=== PATIENT | female | born 1955 | race Caucasian/White ===

== ENCOUNTER 2019-01-15 10:00 | Emergency (ER) | payer OTHER, SELFPAY ==
[2019-01-15] VITALS (12 sets, daily range): BP systolic 118–197; BP diastolic 70–110; PULSE 61–72; RESP 10–17; TEMP 36.8–37.1; O2SAT 95–99; BMI 23.8
--- NOTE | 2019-01-15 10:03 | ED.CHESTPAIN ---
HPI - Chest Pain General Chief Complaint: Chest Pain Stated Complaint: Chest pain Time Seen by Provider: 01/15/19 10:06 Source: patient and EMS Mode of arrival: EMS Limitations: no limitations History of Present Illness HPI narrative: Patient is a lisa 63-year-old female presenting with chest pain. She is currently camping she was sitting on a couch with her iPad when it started actually in her right upper quadrant radiated up into her chest and now she says her left arm is aching but overall she is feeling better. Also for about 10 minutes. Nothing made it better or worse. No prior history of coronary artery disease. She has never had anything like this before. She denies shortness of breath diaphoresis nausea. She says that she is under lot of stress her recently passed next week is their anniversary. MD complaint: chest pain Duration: now resolved Onset: during rest Pain location: substernal and other (Right upper quadrant) Relieving factors: nothing Exacerbating factors: nothing Related Data Home Medications Medication Instructions Recorded Confirmed Vitamin B-12 1 tab PO DAILY 01/15/19 01/15/19 Vitamin D3 1 tab PO DAILY 01/15/19 01/15/19 aspirin 81 mg PO DAILY 01/15/19 01/15/19 calcium carb-mag oxide-vit D3 1 tab PO DAILY 01/15/19 01/15/19 duloxetine 30 mg PO QAM 01/15/19 01/15/19 duloxetine 60 mg PO QPM 01/15/19 01/15/19 gabapentin 1,200 mg PO QPM 01/15/19 01/15/19 gabapentin 600 mg PO QAM 01/15/19 01/15/19 lorazepam 0.5 mg PO BID PRN 01/15/19 01/15/19 omeprazole 20 mg PO QAM 01/15/19 01/15/19 tramadol 50 mg PO BID PRN 01/15/19 01/15/19 trazodone 100 mg PO BEDTIME 01/15/19 01/15/19 Allergies Allergy/AdvReac Type Severity Reaction Status Date / Time Penicillins Allergy Verified 01/15/19 10:08 Review of Systems Review of Systems GENERAL: Denies chills, fatigue, malaise, fever, sweats, travel HEENT: Denies sinus pain, ear pain, sore throat, difficulty swallowing, neck pain RESPIRATORY: Denies dyspnea, cough, wheezing, hemoptysis, sputum. CARDIOVASCULAR: See HPI GASTROINTESTINAL: Denies nausea, vomiting, abdominal pain, diarrhea, constipation, melena. : Denies dysuria, frequency, incontinence, hematuria, urinary retention, flank pain. MUSCULOSKELETAL: Denies weakness, joint pain, or bony pain SKIN: No rash, no erythema, no pruritus NEUROLOGIC: Denies weakness, dizziness, headache, numbness, change in speech, confusion PSYCHIATRIC: No concerning psychosocial issues. 12 point review of systems is negative except for those stated above and HPI [facility] Medical History Patient denies significant medical history (Acute) Social History (Updated 01/15/19 @ 10:09 by Natalie Oropeza DO) marital status: lives independently: Yes Smoking Status: Never smoker alcohol intake: never substance use type: does not use Social History marital status: lives independently: Yes Smoking Status: Never smoker alcohol intake: never substance use type: does not use Exam Initial Vital Signs Initial Vital Signs: Vital Signs Temperature 98.7 F 01/15/19 10:00 Pulse Rate 65 01/15/19 10:00 Respiratory Rate 12 01/15/19 10:00 Blood Pressure 197/103 H 01/15/19 10:00 Pulse Oximetry 99 01/15/19 10:00 GENERAL: Alert pleasant elderly female no acute distress HEENT: Head atraumatic,EOMI, pupils reactive, face symmetric, [moist] mucous membranes CARDIOVASCULAR: Regular rate and rhythm without murmurs, rubs or gallops. RESPIRATORY: Breath sounds equal bilaterally, no wheezes rales or rhonchi. ABDOMEN: Soft, no right upper quadrant tenderness no guarding no rebound no epigastric pain EXTREMITIES: Normal range of motion, no clubbing or edema. Neurovascularly intact NEUROLOGICAL: Alert and oriented x4.Normal gait and speech. Cranial nerves II through XII grossly intact. SKIN: Warm, dry, no laceration, no petechiae, no rashes or lesions. Scores HEART Score Heart Score history: Slightly Suspicious Heart Score EKG: Normal Heart Score Age: 45-64 years old Heart Score risk factors: No known risk factors Heart Score troponin: < or = to normal limit Heart Score Total: 1 Course Orders Ordered: ED Orders 01/15/19 13:09 Troponin I Stat Discontinued Medications Sodium Chloride (Normal Saline 0.9%) 1,000 mls @ 150 mls/hr IV CONT MARYAN Last Admin: 01/15/19 10:18 Dose: 150 mls/hr Nitroglycerin (Nitrostat) 0.4 mg SL [id number] PRN PRN Reason: Chest Pain Last Admin: 01/15/19 10:51 Dose: 0.4 mg Admin: 01/15/19 10:45 Dose: 0.4 mg Vital Signs - 8 hr 01/15/19 11:16 01/15/19 11:47 01/15/19 12:00 Temperature Pulse Rate 65 63 64 Respiratory Rate 12 12 12 Blood Pressure [Right Arm] 128/77 118/70 118/71 Pulse Oximetry 95 95 95 01/15/19 12:30 01/15/19 13:00 01/15/19 13:44 Temperature 98.3 F Pulse Rate 66 61 65 Respiratory Rate 17 11 L 16 Blood Pressure [Right Arm] 125/78 130/73 132/84 Pulse Oximetry 97 96 MDM - Chest Pain Lab Data Attestation: I reviewed the patient's lab results. Result diagrams: 01/15/19 10:00 01/15/19 10:00 Lab Results 01/15/19 01/15/19 01/15/19 Range/Units 10:00 10:00 10:00 WBC 4.3 L (4.5-11.0) X10^3/uL RBC 4.60 (4.0-5.2) X10^6/uL Hgb 14.1 (12.0-16.0) g/dL Hct 42.8 (36-46) % MCV 93.0 (80-100) fL MCH 30.7 (26-34) PG MCHC 33.0 (30-36) % RDW 13.2 (11.6-14.8) % Plt Count 224 (150-400) X10^3/uL Neut % (Auto) 49.3 L (50-75) % Lymph % (Auto) 35.5 (25-40) % [place] % (Auto) 11.1 (3-14) % Eos % (Auto) 3.2 (2-4) % Baso % (Auto) 0.9 (0-2) % Neut # (Auto) 2100 (3617-7528) /uL Lymph # (Auto) 1500 (3111-1213) /uL [place] # (Auto) 500 (0-900) /uL Eos # (Auto) 100 (0-450) /uL Baso # (Auto) 0 (0-100) /uL PT 10.7 (10.1-12.7) SECONDS INR 0.9 (0.9-1.3) APTT 31 (26.4-36.2) SECONDS Sodium 141 (137-145) mmol/L Potassium 4.0 (3.4-5.1) mmol/L Chloride 101 (98-107) mmol/L Carbon Dioxide 31 (22-32) mmol/L BUN 18 H (7-17) mg/dL Creatinine 0.70 (0.52-1.04) mg/dL Estimated GFR > 60.0 (>60) mL/min BUN/Creatinine Ratio 25.7 H (6-22) Glucose 100 (80-110) mg/dL Calcium 9.7 (8.4-10.2) mg/dL Total Bilirubin 0.6 (0.2-1.3) mg/dL AST 45 H (14-36) IU/L ALT 24 (9-52) IU/L Alkaline Phosphatase 91 (38-126) U/L Total Creatine Kinase 111 (30-135) U/L CK-MB (CK-2) 2.00 (<2.37) ng/mL CK-MB (CK-2) Rel Index 1.8 (1.5-5.0) % Troponin I < 0.012 (0.01-0.034) ng/mL Total Protein 8.1 (6.3-8.2) g/dL Albumin 4.7 (3.5-5.0) g/dL Globulin 3.4 (1.7-4.1) g/dL Albumin/Globulin Ratio 1.4 (1.0-2.8) Lipase 95 (23-300) U/L 01/15/19 Range/Units 13:09 WBC (4.5-11.0) X10^3/uL RBC (4.0-5.2) X10^6/uL Hgb (12.0-16.0) g/dL Hct (36-46) % MCV (80-100) fL MCH (26-34) PG MCHC (30-36) % RDW (11.6-14.8) % Plt Count (150-400) X10^3/uL Neut % (Auto) (50-75) % Lymph % (Auto) (25-40) % [place] % (Auto) (3-14) % Eos % (Auto) (2-4) % Baso % (Auto) (0-2) % Neut # (Auto) (2352-1659) /uL Lymph # (Auto) (6497-9596) /uL [place] # (Auto) (0-900) /uL Eos # (Auto) (0-450) /uL Baso # (Auto) (0-100) /uL PT (10.1-12.7) SECONDS INR (0.9-1.3) APTT (26.4-36.2) SECONDS Sodium (137-145) mmol/L Potassium (3.4-5.1) mmol/L Chloride (98-107) mmol/L Carbon Dioxide (22-32) mmol/L BUN (7-17) mg/dL Creatinine (0.52-1.04) mg/dL Estimated GFR (>60) mL/min BUN/Creatinine Ratio (6-22) Glucose (80-110) mg/dL Calcium (8.4-10.2) mg/dL Total Bilirubin (0.2-1.3) mg/dL AST (14-36) IU/L ALT (9-52) IU/L Alkaline Phosphatase (38-126) U/L Total Creatine Kinase (30-135) U/L CK-MB (CK-2) (<2.37) ng/mL CK-MB (CK-2) Rel Index (1.5-5.0) % Troponin I < 0.012 (0.01-0.034) ng/mL Total Protein (6.3-8.2) g/dL Albumin (3.5-5.0) g/dL Globulin (1.7-4.1) g/dL Albumin/Globulin Ratio (1.0-2.8) Lipase (23-300) U/L Urine Dip Bedside Urine Glucose Negative Bedside Urine Bilirubin - Negative Bedside Urine Ketone - Negative Urine Specific [place] 1.015 Bedside Urine Occult Blood - Negative Bedside Urine pH 8 Bedside Urine Protein - Negative Bedside Urine Urobilinogen - Negative Bedside Urine Nitrite - Negative Bedside Urine Leukocytes - Negative Esterase Imaging Data Chest x-ray: Radiologist's impression: PROCEDURE: XR CHEST 1V INDICATIONS: chest pain TECHNIQUE: One view of the chest was acquired. COMPARISON: None. FINDINGS: Surgical changes and devices: None. Lungs and pleura: Lungs are clear. No pleural effusions or pneumothorax. Mediastinum: Mediastinal contours appear normal. Heart size is normal. Bones and chest wall: No suspicious bony lesions. Overlying soft tissues appear unremarkable. IMPRESSION: No acute cardiopulmonary findings. Dictated by: Patti Phillips M.D. on 01/15/2019 at 10:48 ECG Data Attestation: I personally reviewed and interpreted this ECG as follows: Prior ECG tracings: not available for review Interpretation: Normal sinus rhythm rate 63 BP are interval [address] changes no T-wave inversion no priors to compare EKG 2. Rate [address] changes no T-wave inversion and no sign of ischemia AL interval 157 no changes from prior MDM Narrative Medical decision making narrative: The patient was given nitroglycerin for her left arm achiness. It did seem to help very much. In fact her daughter state that she has had left arm achiness off and on for some time. She does have a low risk heart score. At this time I discussed with her outpatient follow-up including further outpatient testing. She understands this and agrees. I discussed all findings with the patient and children, Education has been performed regarding treatment plan, diagnosis, warning signs and symptoms and all concerns have been addressed. Verbally agree with and understood all of the above. Discharge Plan Departure Patient Disposition: Home Clinical Impression: Atypical chest pain Discharge Date/Time: 01/15/19 14:04 Interventions: ED Discharge Assessment Last Done: 01/15/19 14:04 Instructions: DI for Atypical Chest Pain Activity Restrictions/Additional Instructions: *You have been diagnosed with atypical chest pain *What to do: It is still recommended that he have outpatient stress test including a treadmill test and echocardiogram. You are considered low risk. However if you should have any return or change of symptoms you need to return to nearest emergency department soon as possible. *Continue to take medications as directed Aspirin 81 mg once daily *Follow up with your primary care provider in 2-3 days *Return to ER if you should have increasing or new or worsening chest or any new, worsening or concerning symptoms Prescriptions: No Action gabapentin 600 mg Tablet 600 mg PO QAM RF: 0 gabapentin 600 mg Tablet 1,200 mg PO QPM RF: 0 trazodone 50 mg Tablet 100 mg PO BEDTIME RF: 0 aspirin 81 mg Tablet,Delayed Release (Dr/Ec) 81 mg PO DAILY RF: 0 tramadol 50 mg Tablet 50 mg PO BID PRN (Reason: pain) RF: 0 lorazepam 0.5 mg Tablet 0.5 mg PO BID PRN (Reason: Anxiety) RF: 0 omeprazole 20 mg Capsule,Delayed Release(Dr/Ec) 20 mg PO QAM RF: 0 duloxetine 30 mg Capsule,Delayed Release(Dr/Ec) 30 mg PO QAM RF: 0 duloxetine 60 mg Capsule,Delayed Release(Dr/Ec) 60 mg PO QPM RF: 0 Vitamin B-12 1 tab PO DAILY RF: 0 Vitamin D3 1 tab PO DAILY RF: 0 calcium carb-mag oxide-vit D3 1 tab PO DAILY RF: 0
--- NOTE | 2019-01-15 10:10 | ED_ITS ---
HPI - Chest Pain General Chief Complaint: Chest Pain Stated Complaint: Chest pain Time Seen by Provider: 01/15/19 10:06 Source: patient and EMS Mode of arrival: EMS Limitations: no limitations History of Present Illness HPI narrative: Patient is a lisa 63-year-old female presenting with chest pain. She is currently camping she was sitting on a couch with her iPad when it started actually in her right upper quadrant radiated up into her chest and now she says her left arm is aching but overall she is feeling better. Also for about 10 minutes. Nothing made it better or worse. No prior history of coronary artery disease. She has never had anything like this before. She denies shortness of breath diaphoresis nausea. She says that she is under lot of stress her recently passed next week is their anniversary. MD complaint: chest pain Duration: now resolved Onset: during rest Pain location: substernal and other (Right upper quadrant) Relieving factors: nothing Exacerbating factors: nothing Related Data Home Medications Medication Instructions Recorded Confirmed Vitamin B-12 1 tab PO DAILY 01/15/19 01/15/19 Vitamin D3 1 tab PO DAILY 01/15/19 01/15/19 aspirin 81 mg PO DAILY 01/15/19 01/15/19 calcium carb-mag oxide-vit D3 1 tab PO DAILY 01/15/19 01/15/19 duloxetine 30 mg PO QAM 01/15/19 01/15/19 duloxetine 60 mg PO QPM 01/15/19 01/15/19 gabapentin 1,200 mg PO QPM 01/15/19 01/15/19 gabapentin 600 mg PO QAM 01/15/19 01/15/19 lorazepam 0.5 mg PO BID PRN 01/15/19 01/15/19 omeprazole 20 mg PO QAM 01/15/19 01/15/19 tramadol 50 mg PO BID PRN 01/15/19 01/15/19 trazodone 100 mg PO BEDTIME 01/15/19 01/15/19 Allergies Allergy/AdvReac Type Severity Reaction Status Date / Time Penicillins Allergy Verified 01/15/19 10:08 Review of Systems Review of Systems GENERAL: Denies chills, fatigue, malaise, fever, sweats, travel HEENT: Denies sinus pain, ear pain, sore throat, difficulty swallowing, neck pain RESPIRATORY: Denies dyspnea, cough, wheezing, hemoptysis, sputum. CARDIOVASCULAR: See HPI GASTROINTESTINAL: Denies nausea, vomiting, abdominal pain, diarrhea, constipation, melena. : Denies dysuria, frequency, incontinence, hematuria, urinary retention, flank pain. MUSCULOSKELETAL: Denies weakness, joint pain, or bony pain SKIN: No rash, no erythema, no pruritus NEUROLOGIC: Denies weakness, dizziness, headache, numbness, change in speech, confusion PSYCHIATRIC: No concerning psychosocial issues. 12 point review of systems is negative except for those stated above and HPI [facility] Medical History Patient denies significant medical history (Acute) Social History (Updated 01/15/19 @ 10:09 by Natalie Oropeza DO) marital status: lives independently: Yes Smoking Status: Never smoker alcohol intake: never substance use type: does not use Social History marital status: lives independently: Yes Smoking Status: Never smoker alcohol intake: never substance use type: does not use Exam Initial Vital Signs Initial Vital Signs: Vital Signs Temperature 98.7 F 01/15/19 10:00 Pulse Rate 65 01/15/19 10:00 Respiratory Rate 12 01/15/19 10:00 Blood Pressure 197/103 H 01/15/19 10:00 Pulse Oximetry 99 01/15/19 10:00 GENERAL: Alert pleasant elderly female no acute distress HEENT: Head atraumatic,EOMI, pupils reactive, face symmetric, [moist] mucous membranes CARDIOVASCULAR: Regular rate and rhythm without murmurs, rubs or gallops. RESPIRATORY: Breath sounds equal bilaterally, no wheezes rales or rhonchi. ABDOMEN: Soft, no right upper quadrant tenderness no guarding no rebound no epigastric pain EXTREMITIES: Normal range of motion, no clubbing or edema. Neurovascularly intact NEUROLOGICAL: Alert and oriented x4.Normal gait and speech. Cranial nerves II th rough XII grossly intact. SKIN: Warm, dry, no laceration, no petechiae, no rashes or lesions. Scores HEART Score Heart Score history: Slightly Suspicious Heart Score EKG: Normal Heart Score Age: 45-64 years old Heart Score risk factors: No known risk factors Heart Score troponin: < or = to normal limit Heart Score Total: 1 Course Orders Ordered: ED Orders 01/15/19 13:09 Troponin I Stat Discontinued Medications Sodium Chloride (Normal Saline 0.9%) 1,000 mls @ 150 mls/hr IV CONT MARYAN Last Admin: 01/15/19 10:18 Dose: 150 mls/hr Nitroglycerin (Nitrostat) 0.4 mg SL [id number] PRN PRN Reason: Chest Pain Last Admin: 01/15/19 10:51 Dose: 0.4 mg Admin: 01/15/19 10:45 Dose: 0.4 mg Vital Signs - 8 hr 01/15/19 11:16 01/15/19 11:47 01/15/19 12:00 Temperature Pulse Rate 65 63 64 Respiratory Rate 12 12 12 Blood Pressure [Right Arm] 128/77 118/70 118/71 Pulse Oximetry 95 95 95 01/15/19 12:30 01/15/19 13:00 01/15/19 13:44 Temperature 98.3 F Pulse Rate 66 61 65 Respiratory Rate 17 11 L 16 Blood Pressure [Right Arm] 125/78 130/73 132/84 Pulse Oximetry 97 96 MDM - Chest Pain Lab Data Attestation: I reviewed the patient's lab results. Result diagrams: 01/15/19 10:00 01/15/19 10:00 Lab Results 01/15/19 01/15/19 01/15/19 Range/Units 10:00 10:00 10:00 WBC 4.3 L (4.5-11.0) X10^3/uL RBC 4.60 (4.0-5.2) X10^6/uL Hgb 14.1 (12.0-16.0) g/dL Hct 42.8 (36-46) % MCV 93.0 (80-100) fL MCH 30.7 (26-34) PG MCHC 33.0 (30-36) % RDW 13.2 (11.6-14.8) % Plt Count 224 (150-400) X10^3/uL Neut % (Auto) 49.3 L (50-75) % Lymph % (Auto) 35.5 (25-40) % [place] % (Auto) 11.1 (3-14) % Eos % (Auto) 3.2 (2-4) % Baso % (Auto) 0.9 (0-2) % Neut # (Auto) 2100 (7794-9508) /uL Lymph # (Auto) 1500 (9318-0099) /uL [place] # (Auto) 500 (0-900) /uL Eos # (Auto) 100 (0-450) /uL Baso # (Auto) 0 (0-100) /uL PT 10.7 (10.1-12.7) SECONDS INR 0.9 (0.9-1.3) APTT 31 (26.4-36.2) SECONDS Sodium 141 (137-145) mmol/L Potassium 4.0 (3.4-5.1) mmol/L Chloride 101 (98-107) mmol/L Carbon Dioxide 31 (22-32) mmol/L BUN 18 H (7-17) mg/dL Creatinine 0.70 (0.52-1.04) mg/dL Estimated GFR > 60.0 (>60) mL/min BUN/Creatinine Ratio 25.7 H (6-22) Glucose 100 (80-110) mg/dL Calcium 9.7 (8.4-10.2) mg/dL Total Bilirubin 0.6 (0.2-1.3) mg/dL AST 45 H (14-36) IU/L ALT 24 (9-52) IU/L Alkaline Phosphatase 91 (38-126) U/L Total Creatine Kinase 111 (30-135) U/L CK-MB (CK-2) 2.00 (<2.37) ng/mL CK-MB (CK-2) Rel Index 1.8 (1.5-5.0) % Troponin I < 0.012 (0.01-0.034) ng/mL Total Protein 8.1 (6.3-8.2) g/dL Albumin 4.7 (3.5-5.0) g/dL Globulin 3.4 (1.7-4.1) g/dL Albumin/Globulin Ratio 1.4 (1.0-2.8) Lipase 95 (23-300) U/L 01/15/19 Range/Units 13:09 WBC (4.5-11.0) X10^3/uL RBC (4.0-5.2) X10^6/uL Hgb (12.0-16.0) g/dL Hct (36-46) % MCV (80-100) fL MCH (26-34) PG MCHC (30-36) % RDW (11.6-14.8) % Plt Count (150-400) X10^3/uL Neut % (Auto) (50-75) % Lymph % (Auto) (25-40) % [place] % (Auto) (3-14) % Eos % (Auto) (2-4) % Baso % (Auto) (0-2) % Neut # (Auto) (6230-1617) /uL Lymph # (Auto) (9274-4237) /uL [place] # (Auto) (0-900) /uL Eos # (Auto) (0-450) /uL Baso # (Auto) (0-100) /uL PT (10.1-12.7) SECONDS INR (0.9-1.3) APTT (26.4-36.2) SECONDS Sodium (137-145) mmol/L Potassium (3.4-5.1) mmol/L Chloride (98-107) mmol/L Carbon Dioxide (22-32) mmol/L BUN (7-17) mg/dL Creatinine (0.52-1.04) mg/dL Estimated GFR (>60) mL/min BUN/Creatinine Ratio (6-22) Glucose (80-110) mg/dL Calcium (8.4-10.2) mg/dL Total Bilirubin (0.2-1.3) mg/dL AST (14-36) IU/L ALT (9-52) IU/L Alkaline Phosphatase (38-126) U/L Total Creatine Kinase (30-135) U/L CK-MB (CK-2) (<2.37) ng/mL CK-MB (CK-2) Rel Index (1.5-5.0) % Troponin I < 0.012 (0.01-0.034) ng/mL Total Protein (6.3-8.2) g/dL Albumin (3.5-5.0) g/dL Globulin (1.7-4.1) g/dL Albumin/Globulin Ratio (1.0-2.8) Lipase (23-300) U/L Urine Dip Bedside Urine Glucose Negative Bedside Urine Bilirubin - Negative Bedside Urine Ketone - Negative Urine Specific [place] 1.015 Bedside Urine Occult Blood - Negative Bedside Urine pH 8 Bedside Urine Protein - Negative Bedside Urine Urobilinogen - Negative Bedside Urine Nitrite - Negative Bedside Urine Leukocytes - Negative Esterase Imaging Data Chest x-ray: Radiologist's impression: PROCEDURE: XR CHEST 1V INDICATIONS: chest pain TECHNIQUE: One view of the chest was acquired. COMPARISON: None. FINDINGS: Surgical changes and devices: None. Lungs and pleura: Lungs are clear. No pleural effusions or pneumothorax. Mediastinum: Mediastinal contours appear normal. Heart size is normal. Bones and chest wall: No suspicious bony lesions. Overlying soft tissues appear unremarkable. IMPRESSION: No acute cardiopulmonary findings. Dictated by: Patti Phillips M.D. on 01/15/2019 at 10:48 ECG Data Attestation: I personally reviewed and interpreted this ECG as follows: Prior ECG tracings: not available for review Interpretation: Normal sinus rhythm rate 63 BP are interval [address] changes no T-wave inversion no priors to compare EKG 2. Rate [address] changes no T-wave inversion and no sign of ischemia [place] interval 157 no changes from prior MDM Narrative Medical decision making narrative: The patient was given nitroglycerin for her left arm achiness. It did seem to help very much. In fact her daughter state that she has had left arm achiness off and on for some time. She does have a low risk heart score. At this time I discussed with her outpatient follow-up i ncluding further outpatient testing. She understands this and agrees. I discussed all findings with the patient and children, Education has been performed regarding treatment plan, diagnosis, warning signs and symptoms and all concerns have been addressed. Verbally agree with and understood all of the above. Discharge Plan Departure Patient Disposition: Home Clinical Impression: Atypical chest pain Discharge Date/Time: 01/15/19 14:04 Interventions: ED Discharge Assessment Last Done: 01/15/19 14:04 Instructions: DI for Atypical Chest Pain Activity Restrictions/Additional Instructions: *You have been diagnosed with atypical chest pain *What to do: It is still recommended that he have outpatient stress test including a treadmill test and echocardiogram. You are considered low risk. However if you should have any return or change of symptoms you need to return to nearest emergency department soon as possible. *Continue to take medications as directed Aspirin 81 mg once daily *Follow up with your primary care provider in 2-3 days *Return to ER if you should have increasing or new or worsening chest or any new, worsening or concerning symptoms Prescriptions: No Action gabapentin 600 mg Tablet 600 mg PO QAM RF: 0 gabapentin 600 mg Tablet 1,200 mg PO QPM RF: 0 trazodone 50 mg Tablet 100 mg PO BEDTIME RF: 0 aspirin 81 mg Tablet,Delayed Release (Dr/Ec) 81 mg PO DAILY RF: 0 tramadol 50 mg Tablet 50 mg PO BID PRN (Reason: pain) RF: 0 lorazepam 0.5 mg Tablet 0.5 mg PO BID PRN (Reason: Anxiety) RF: 0 omeprazole 20 mg Capsule,Delayed Release(Dr/Ec) 20 mg PO QAM RF: 0 duloxetine 30 mg Capsule,Delayed Release(Dr/Ec) 30 mg PO QAM RF: 0 duloxetine 60 mg Capsule,Delayed Release(Dr/Ec) 60 mg PO QPM RF: 0 Vitamin B-12 1 tab PO DAILY RF: 0 Vitamin D3 1 tab PO DAILY RF: 0 calcium carb-mag oxide-vit D3 1 tab PO DAILY RF: 0
[2019-01-15 10:17] LABS: Add Manual Diff / Slide Review NO; Basophils Absolute Auto 0 /uL (0-100); Basophils Percent Auto 0.9 % (0-2); Eosinophils Absolute Auto 100 /uL (0-450); Eosinophils Percent Auto 3.2 % (2-4); Hematocrit 42.8 % (36-46); Hemoglobin 14.1 g/dL (12.0-16.0); Lymphocytes Absolute Auto 1500 /uL (1100-4500); Lymphocytes Percent Auto 35.5 % (25-40); Mean Corpuscular Hemoglobin 30.7 PG (26-34); Monocytes Absolute Auto 500 /uL (0-900); Monocytes Percent Auto 11.1 % (3-14); Neutrophils Absolute Auto 2100 /uL (1500-7000); Neutrophils Percent Auto 49.3 % (50-75); Platelet Count 224 X10^3/uL (150-400); Red Cell Distribution Width 13.2 % (11.6-14.8); White Blood Cell Count 4.3 X10^3/uL (4.5-11.0)
[2019-01-15] MEDS: SODIUM CHLORIDE 0.9% 1,000 ML 150 ML IV (10:18)
[2019-01-15 10:21] LABS: INR 0.9 (0.9-1.3); Prothrombin Time 10.7 SECONDS (10.1-12.7)
[2019-01-15 10:24] LABS: PTT Partial Thromboplastin Tim 31 SECONDS (26.4-36.2)
[2019-01-15 10:27] LABS: Alanine Aminotransferase 24 IU/L (9-52); Albumin 4.7 g/dL (3.5-5.0); Albumin Globulin Ratio 1.4 (1.0-2.8); Alkaline Phosphatase 91 U/L (38-126); Aspartate Aminotransferase 45 IU/L (14-36); BUN Creatinine Ratio 25.7 (6-22); Bilirubin Total 0.6 mg/dL (0.2-1.3); Blood Urea Nitrogen 18 mg/dL (7-17); Calcium 9.7 mg/dL (8.4-10.2); Carbon Dioxide 31 mmol/L (22-32); Chloride 101 mmol/L (98-107); Creatine Kinase 111 U/L (30-135); Estimated Glomerular Filt Rate > 60.0 mL/min (>60); Globulin 3.4 g/dL (1.7-4.1); Glucose 100 mg/dL (80-110); HEMOLYSIS 37 (0-50); Lipase 95 U/L (23-300); Sodium 141 mmol/L (137-145); Total Protein 8.1 g/dL (6.3-8.2)
[2019-01-15 10:38] LABS: Troponin I < 0.012 ng/mL (0.01-0.034)
[2019-01-15 10:42] LABS: CKMB % Relative Index 1.8 % (1.5-5.0)
[2019-01-15] MEDS: NITROGLYCERIN 0.4 MG SL TAB SL ×2 (10:45→10:51)
--- NOTE | 2019-01-15 11:25 | PC.NURSE ---
pt ambulating to bathroom, gait steady
--- NOTE | 2019-01-15 13:34 | PC.NURSE ---
pt ambulating to bathroom, gait steady
[2019-01-15 13:41] LABS: Troponin I < 0.012 ng/mL (0.01-0.034)
--- NOTE | 2019-01-27 20:55 | PC.NURSE ---
Late entry, IV fluids started at 1018 at 150ml/hr, d/c'd at 1400, total approx. infusion 575ml, no ill effect, waste amount 425ml
== END 2019-01-15 14:04 | disposition home or self-care (01) ==
PROVIDERS: Emergency Provider Emergency Medicine
DX: R07.89 Other chest pain (principal)
CPT/HCPCS: 36415; 36591; 71045; 80053; 81003; 82550; 82553; 83690; 84484; 85025; 85610; 85730; 93005; 96360; 96361; 99284; 99285